=== PATIENT | female | born 1940 | race Caucasian/White ===

== ENCOUNTER 2018-08-28 05:26 | Inpatient (IN) | payer MEDICARE, OTHER ==
[2018-08-26 13:00] LABS: MEAN CORPUSCULAR HEMOGLOBIN 28.9 PG (27.0-31.0); MEAN CORPUSCULAR HGB CONC 33.7 % (33.0-36.5); MEAN CORPUSCULAR VOLUME 85.8 FL (78-98); MEAN PLATELET VOLUME 8.6 FL (7.4-10.4); PRE OP HEMATOCRIT 43.1 % (35.0-45.0); PRE OP HEMOGLOBIN 14.5 g/dL (12.0-16.0); RED BLOOD COUNT 5.02 X10'6 (4.20-5.60); RED CELL DISTRIBUTION WIDTH 12.8 % (11.5-14.5)
[2018-08-26 13:01] LABS: BASOPHILS # (AUTO) 0.1 X10'3 (0-0.2); BASOPHILS % (AUTO) 0.8 % (0-1); EOSINOPHILS # (AUTO) 0.1 X10'3 (0-0.9); EOSINOPHILS % (AUTO) 1.8 % (0-6); LYMPHOCYTES # (AUTO) 1.6 X10'3 (1.1-4.8); MONOCYTES # (AUTO) 0.8 X10'3 (0-0.9); MONOCYTES % (AUTO) 11.9 % (2-12); NEUTROPHILS % (AUTO) 60.5 % (42-75)
[2018-08-26 13:03] LABS: PRE OP PLATELET COUNT 246 X10'3 (140-440)
[2018-08-26 13:18] LABS: ALBUMIN 3.6 G/DL (3.4-5.0); ALBUMIN/GLOBULIN RATIO 0.9 (1.1-1.5); ALKALINE PHOSPHATASE 69 IU/L (46-116); BLOOD UREA NITROGEN 19 MG/DL (7-18); BUN/CREATININE RATIO 23.5 (6.6-38.0); CALCIUM 8.9 MG/DL (8.5-10.1); CHLORIDE 105 MMOL/L (99-107); CREATININE 0.81 MG/DL (0.40-0.90); PRE OP ALT 24 U/L (30-65); PRE OP ANION GAP 12 (8-16); PRE OP AST 23 U/L (10-37); PRE OP BILIRUB, TOTAL 0.3 MG/DL (0.0-1.0); PRE OP GLUCOSE 84 MG/DL (70-104); PRE OP SODIUM 144 MMOL/L (135-145); TOTAL CARBON DIOXIDE 27.4 MMOL/L (24-32); TOTAL PROTEIN 7.6 G/DL (6.4-8.2); eGFR 68 ML/MIN
[~2018-08-28] VITALS: Ht 160 cm; Wt 73.0 kg
[2018-08-28] VITALS (18 sets, daily range): BP systolic 110–154; BP diastolic 54–83
[~2018-08-28 05:26] MED LIST: ASPI-1053 PO; CALCIUM PO; CHOL100046 PO; IBUP-24 PO; LEVO75TA PO; TEMA15CA5 PO; ringers solution, lacted 1,000 ML IV SCH
[2018-08-28] MEDS ORDERED: famotidine 20mg tablet PO ONE (05:30)
[2018-08-28] MEDS ORDERED: cefazolin/dext.iso 2gm/100 ML IV ONE (05:30)
[2018-08-28] MEDS ORDERED: vancomycin inj 1,500 MG in normal saline 300ml IV soln IV ONE (05:30)
[2018-08-28] MEDS ORDERED: LIDOcaine 1% (10mg/ml) 2ml vial ONE (05:42)
[2018-08-28] MEDS ORDERED: ROPIVAcaine 0.5% (5mg/ml) 30ml vial ONE ×2 (07:09→08:31)
[2018-08-28] MEDS ORDERED: cloNIDine hcl/PF 100mcg/ml inj ONE (07:09)
[2018-08-28] MEDS ORDERED: dexamethasone sod phosphate 4mg/ml inj. ONE (08:18)
[2018-08-28] MEDS ORDERED: ondansetron/PF 4mg/2ml inj ONE (08:20)
[2018-08-28] MEDS ORDERED: propofol inj 20 ML IV ONE (08:20)
[2018-08-28] MEDS ORDERED: LIDOcaine 2% (20mg/ml) 5ml vial ONE (08:20)
[2018-08-28] MEDS ORDERED: ketorolac trometh. 30mg/ml inj. ONE (08:30)
[2018-08-28] MEDS ORDERED: vancomycin 1,000mg inj ONE (08:30)
[2018-08-28] MEDS ORDERED: sevoflurane 250ml liquid IH ONE (09:00)
[2018-08-28] MEDS ORDERED: fentaNYL/PF 50MCG/1 ML 2ML syringe ONE (09:11)
[2018-08-28] MEDS ORDERED: midazolam 2 mg/2 ml injection ONE (09:11)
[2018-08-28] MEDS ORDERED: tranexamic acid inj. 700 MG in normal saline 100ml IV soln 93 ML IV ONE ×2 (09:15→10:00)
[2018-08-28] MEDS ORDERED: ePHEDrine 50MG/ML INJ. ONE (09:52)
[2018-08-28] MEDS ORDERED: ringers solution, lacted 1,000 ML IV SCH (09:56)
[2018-08-28] MEDS ORDERED: morphine 4 MG/ML inj SYRINge IV PRN ×2 (10:00)
[2018-08-28] MEDS ORDERED: ondansetron/PF 4mg/2ml inj IV PRN ×2 (10:00→11:40)
[2018-08-28] MEDS ORDERED: hydrALAZINE 20mg/ml inj. IV PRN (10:00)
[2018-08-28] MEDS ORDERED: labetalol 20mg/4ml (5mg/ml) syringe IV PRN (10:00)
[2018-08-28] MEDS ORDERED: meperidine/PF 25mg/ml syringe IV PRN ×2 (10:00)
[2018-08-28] MEDS ORDERED: magnesium hydroxide 30ml (MOM) UD suspension PO PRN (11:40)
[2018-08-28] MEDS ORDERED: temazepam 15mg capsule PO PRN (11:40)
[2018-08-28] MEDS ORDERED: HYDROmorphone 1 mg/ml syringe IV PRN ×2 (11:40)
[2018-08-28] MEDS ORDERED: bisacodyl 10mg suppository rectal RC PRN (11:40)
[2018-08-28] MEDS ORDERED: acetaminophen 325mg tablet PO PRN (11:40)
[2018-08-28] MEDS ORDERED: oxyCODONE IR 5mg (immed. release) tablet PO PRN (11:40)
[2018-08-28] MEDS ORDERED: diphenhydrAMINE 25mg capsule PO PRN ×2 (11:40)
[2018-08-28] MEDS: ketorolac tromethamine 15mg/ml inj. IV SCH ×2 (13:38→19:31)
[2018-08-28] MEDS: acetaminophen 325mg tablet PO SCH ×2 (13:38→19:31)
[2018-08-28] MEDS: gabapentin 300mg capsule PO SCH ×2 (13:38→20:23)
[2018-08-28] MEDS ORDERED: tranexamic acid inj. 730 MG in normal saline 100ml IV soln 100 ML IV ONE (14:30)
[2018-08-28] MEDS: potassium cl 20mEq in 1/2 NS 1,000 ML IV SCH (15:54)
[2018-08-28] MEDS: ceFAZolin 1GM/D5W- ADD-VANTAGE 50 ML IV SCH (15:54)
[2018-08-28] MEDS ORDERED: vancomycin/NS 1 GM ADD-VANTAGE 250 ML IV SCH (20:00)
[2018-08-28] MEDS ORDERED: sennosides 8.6mg tablet PO SCH (21:00)
[2018-08-29] MEDS: ceFAZolin 1GM/D5W- ADD-VANTAGE 50 ML IV SCH (00:07)
[2018-08-29 02:00] VITALS: BP 119/68
[2018-08-29] MEDS: potassium cl 20mEq in 1/2 NS 1,000 ML IV SCH ×3 (02:15→11:08)
[2018-08-29] MEDS: ketorolac tromethamine 15mg/ml inj. IV SCH ×2 (02:16→08:02)
[2018-08-29] MEDS: acetaminophen 325mg tablet PO SCH ×3 (02:16→15:52)
[2018-08-29 06:00] VITALS: BP 149/74
[2018-08-29 07:54] LABS: BASOPHILS % (AUTO) 0.1 % (0-1); EOSINOPHILS % (AUTO) 0 % (0-6); HEMOGLOBIN 11.9 g/dl (12.0-16.0); LYMPHOCYTES # (AUTO) 1.1 X10'3 (1.1-4.8); LYMPHOCYTES % (AUTO) 8.7 % (21-51); MEAN CORPUSCULAR VOLUME 85.7 FL (78-98); MEAN PLATELET VOLUME 8.8 FL (7.4-10.4); MONOCYTES # (AUTO) 0.9 X10'3 (0-0.9); MONOCYTES % (AUTO) 7.1 % (2-12); NEUTROPHILS # (AUTO) 10.9 X10'3 (1.8-7.7); NEUTROPHILS % (AUTO) 84.1 % (42-75); PLATELET COUNT 192 X10'3 (140-440); RED BLOOD COUNT 3.97 X10'6 (4.20-5.60); RED CELL DISTRIBUTION WIDTH 12.6 % (11.5-14.5); WHITE BLOOD COUNT 12.9 X10'3 (4.5-11.0)
[2018-08-29] MEDS ORDERED: levoTHYROXINE 25mcg tablet PO SCH (08:00)
[2018-08-29] MEDS ORDERED: CALCIUM 1200 MG PO SCH ×2 (08:00)
[2018-08-29] MEDS ORDERED: cholecalciferol (vitamin D) 400 unit tablet PO SCH (08:00)
[2018-08-29] MEDS ORDERED: aspirin 81mg tab.chew PO SCH (08:00)
[2018-08-29] MEDS: gabapentin 300mg capsule PO SCH ×2 (08:01→12:28)
[2018-08-29 08:26] LABS: ANION GAP 11 (8-16); CHLORIDE 108 MMOL/L (99-107); POTASSIUM 4.5 MMOL/L (3.5-5.1); SODIUM 143 MMOL/L (135-145); TOTAL CARBON DIOXIDE 24.4 MMOL/L (24-32)
[2018-08-29] MEDS ORDERED: aspirin 325mg tablet PO SCH (08:30)
[2018-08-29 10:00] VITALS: BP 114/50
[2018-08-29] MEDS: oxyCODONE IR 5mg (immed. release) tablet PO PRN ×2 (11:05→15:53)
[2018-08-29] MEDS ORDERED: celeCOXIB 100mg capsule PO SCH (20:00)
[2018-08-30] MEDS ORDERED: acetaminophen 325mg tablet PO PRN (11:40)
== END 2018-08-29 17:30 | disposition home or self-care (01) | DRG 483 ==
LOC: PAS IN 05:26 → EDSTATUS 07:30 → ORTHO 4S 12:40
PROVIDERS: ADMIT Orthopaedic Surgery; ATTEND Orthopaedic Surgery
PROC: 0LS30ZZ Reposition Right Upper Arm Tendon, Open Approach (ICD-10-PCS; 2018-08-28)
PROC: 3E0T3BZ Introduction of Anesthetic Agent into Peripheral Nerves and Plexi, Percutaneous Approach (ICD-10-PCS; 2018-08-28)
PROC: 0RRJ00Z Replacement of Right Shoulder Joint with Reverse Ball and Socket Synthetic Substitute, Open Approach (ICD-10-PCS; principal; 2018-08-28 09:05)
DX: M19.111 Post-traumatic osteoarthritis, right shoulder (principal); D62 Acute posthemorrhagic anemia; S42.221 2-part displaced fracture of surgical neck of right humerus; G47.00 Insomnia, unspecified; E03.9 Hypothyroidism, unspecified; Z79.890 Hormone replacement therapy; Z79.899 Other long term (current) drug therapy
CPT/HCPCS: 36415; 80051; 80053; 84443; 85025; 87070; 93005; 97110; 97116; 97161; A4565; A7000; G0378; J0690; J0735; J1100; J1885; J2001; J2250; J2405; J2704; J2795; J3010; J3370; J3490; J7030; J7040; J7120